=== PATIENT | female | born 2005 | race Caucasian/White ===

== ENCOUNTER 2023-02-21 01:27 | Emergency (ER) | payer BC ==
[~2023-02-21] VITALS: Ht 162.6 cm; Wt 55.0 kg
[2023-02-21 01:30] VITALS: O2SAT 99
[2023-02-21 03:02] LABS: BASOPHILS % 0.5 % (0.0-2.0); EOSINOPHILS % 0.7 % (0.0-5.0); HEMATOCRIT. 42.2 % (36.0-48.0); HEMOGLOBIN. 14.1 g/dL (12.0-16.0); LYMPHOCYTES % 34.9 % (20.0-50.0); MEAN CORPUSCULAR HEMOGLOBIN 30.7 pg (28.0-32.0); MEAN CORPUSCULAR HGB CONC 33.4 g/dL (31.0-37.0); MEAN CORPUSCULAR VOLUME 91.8 fL (81.0-99.0); MEAN PLATELET VOLUME 8.2 fl (7.4-10.4); MONOCYTES % 7.5 % (2.0-8.0); NEUTROPHILS % 56.4 % (40.0-76.0); PLATELET 253 x1000/uL (130-400); WHITE BLOOD COUNT 5.6 x1000/uL (4.5-11.0)
[2023-02-21 03:08] LABS: ACETAMINOPHEN < 2 ug/mL (10-30); ALANINE AMINOTRANSFERASE 11 IU/L (10-49); ALBUMIN 4.6 g/dL (3.2-4.8); ASPARTATE AMINOTRANSFERASE 20 IU/L (<34); BILIRUBIN TOTAL 0.5 mg/dL (0.1-1.0); CALCIUM 9.3 mg/dL (8.7-10.4); CARBON DIOXIDE 28 mEq/L (21-32); CHLORIDE 105 mEq/L (98-107); CREATININE 0.7 mg/dL (0.6-1.0); GLUCOSE 86 mg/dL (70-105); POTASSIUM 3.6 mEq/L (3.5-5.1); PROTEIN TOTAL 7.7 g/dL (6.0-8.3); SODIUM 140 mEq/L (136-145); UREA NITROGEN BLOOD 13 mg/dL (9-23)
[2023-02-21 03:09] LABS: ETHANOL BLOOD < 10 mg/dL (<10)
[2023-02-21 03:21] LABS: CLARITY URINE CLEAR (CLEAR); COLOR URINE YELLOW (YELLOW); GLUCOSE URINE NEGATIVE (NEGATIVE); KETONES URINE 3+ (NEGATIVE); LEUKOCYTE ESTERASE URINE NEGATIVE (NEGATIVE); NITRITE URINE NEGATIVE (NEGATIVE); OCCULT BLOOD URINE 1+ (NEGATIVE); PROTEIN URINE NEGATIVE (NEGATIVE); SPECIFIC GRAVITY URINE 1.031 (1.005-1.030)
[2023-02-21 04:02] LABS: *AMPHETAMINES SCREEN URINE NEGATIVE (NEGATIVE); *BARBITURATES SCREEN URINE NEGATIVE (NEGATIVE); *BENZODIAZEPINES SCREEN URINE NEGATIVE (NEGATIVE); *COCAINE SCREEN URINE NEGATIVE (NEGATIVE); CANNABINOID URINE SCREEN NEGATIVE (NEGATIVE); ECSTASY MDMA SCREEN URINE NEGATIVE (NEGATIVE); METHADONE URINE SCREEN Neg (NEGATIVE); OPIATES URINE SCREEN NEGATIVE (NEGATIVE); PHENCYCLIDINE URINE SCREEN NEGATIVE (NEGATIVE)
[2023-02-21 04:35] LABS: SQUAMOUS EPITHELIAL CELL URINE 1+ /lpf (RARE/1+)
[2023-02-21 04:42] LABS: RBC URINE 0-2 /hpf (0-2); WBC URINE 0-2 /hpf (0-2)
[2023-02-21 04:44] LABS: BACTERIA URINE TRACE
[2023-02-21 06:25] LABS: HCG SCREEN NEGATIVE
[2023-02-22 00:09] VITALS: BP 116/66; PULSE 71; RESP 16; TEMP 98.8
[2023-02-22] MEDS ORDERED: POLY17PO3 MT (14:21)
== END 2023-02-22 01:59 | disposition home or self-care (01) ==
LOC: ER 01:27
DX: R45.851 Suicidal ideations (principal); F32.9 Major depressive disorder, single episode, unspecified; Z20.822 Contact with and (suspected) exposure to COVID-19
CPT/HCPCS: 80053; 80305; 81003; 80307; 80329; 80320; 84703; 85025; 36415; 99285; 87426; C9803; G0480

== ENCOUNTER 2023-02-22 08:47 | Emergency (ER) | payer BC ==
[~2023-02-22] VITALS: Ht 170.2 cm; Wt 58.0 kg
[2023-02-22 08:54] VITALS: BP 121/65; PULSE 77; RESP 20; TEMP 98.7; O2SAT 100
[2023-02-22] MEDS ORDERED: POLY17PO3 MT (14:21)
== END 2023-02-22 13:00 | disposition left against medical advice (07) ==
LOC: ER 08:47
DX: K59.00 Constipation, unspecified (principal); Z53.21 Procedure and treatment not carried out due to patient leaving prior to being seen by health care provider
CPT/HCPCS: 99281

== ENCOUNTER 2023-02-22 13:14 | Emergency (ER) | payer BC ==
[~2023-02-22] VITALS: Ht 157.5 cm; Wt 60.0 kg
[2023-02-22 13:22] VITALS: BP 121/77; PULSE 69; RESP 20; TEMP 98.6; O2SAT 100
[2023-02-22] MEDS ORDERED: POLY17PO3 MT (14:21)
== END 2023-02-22 18:14 | disposition home or self-care (01) ==
LOC: ER 13:14
DX: K59.00 Constipation, unspecified (principal)
CPT/HCPCS: 99281

== ENCOUNTER 2023-04-24 15:55 | Emergency (ER) | payer BC, MEDICAID ==
[~2023-04-24] VITALS: Ht 167.6 cm; Wt 57.0 kg
[~2023-04-24 15:55] MED LIST: POLY17PO3 MT
[2023-04-24 16:03] VITALS: BP 131/72; PULSE 81; RESP 16; TEMP 98.1; O2SAT 100
[2023-04-24] MEDS ORDERED: ACETAMINOPHEN 325MG TABLET PO ONE (17:30)
[2023-04-24] MEDS ORDERED: SODIUM CHLORIDE 0.9% 500 ML IV ONE (17:30)
[2023-04-24] MEDS ORDERED: METOCLOPRAMIDE HCL 10MG/2ML VIAL IV ONE (17:30)
== END 2023-04-24 17:54 | disposition left against medical advice (07) ==
LOC: ER 15:55
DX: R51.9 Headache, unspecified (principal)
CPT/HCPCS: 99281; J7040